=== PATIENT | female | born 1985 | race Caucasian/White ===

== ENCOUNTER 2017-01-02 14:12 | Emergency (ER) | payer BC, OTHER ==
[2017-01-02] MEDS ORDERED: METOCLOPRAMIDE INJ 10MG/2ML VIAL (J2765) As Ordered ONE (14:55)
[2017-01-02 14:59] LABS: MEAN CORPUSCULAR HGB CONC 34.5 g/dl (32.0-36.5); MEAN CORPUSCULAR VOLUME 92.6 fl (80.0-96.0); RED CELL DISTRIBUTION WIDTH 13.7 % (11.5-14.5); WHITE BLOOD COUNT 12.6 K/mm3 (4.0-10.0)
--- NOTE | 2017-01-02 16:27 | REP ---
Clinical: Vaginal bleeding. Technique: Transabdominal obstetrical ultrasound with color Doppler evaluation. Findings: Single live intrauterine in cephalic presentation. motion was identified by technologist. Placenta is noted anteriorly and grade 1 without evidence for placenta previa or abruption. Amniotic fluid volume is normal. Cervix measures 3.3 cm length and appears closed. Current biometrical measurements correspond to 14 weeks 5 days gestational age with estimated date of delivery 06/28/2017. heart rate equals 160 beats per minute. No gross abnormalities are identified. Maternal ovaries are normal in appearance and vascularity without torsion. Impression: Single live intrauterine at 14 weeks 5 days gestational age. Complete anatomical assessment should be performed at 19-20 weeks. Signed by Sky Samayoa MD 01/02/2017 04:19 P
[2017-01-02] MEDS ORDERED: METOCLOPRAMIDE 10 MG TAB As Ordered ONE (17:01)
[2017-01-02] MEDS ORDERED: ACETAMINOPHEN 325 MG TAB As Ordered ONE (17:02)
--- NOTE | 2017-01-02 17:11 | EDDOCDS ---
Nurse's Notes [facility] Name: Felicitas Kaye Age: 31 yrs Sex: Female : 1985 Arrival Date: 01/02/2017 Time: 14:12 Bed I1 / M1 Private MD: Other - Complete Info On Cds Diagnosis: related conditions, unspecified, first trimester-14 weeks 5 days;Abnormal uterine and vaginal bleeding, unspecified-Vaginal Spotting;Pelvic and perineal pain Presentation: 01/02 14:22 Presenting complaint: Patient states: 14 weeks . vag bleeding started about srm 9am. and cramping. had some cramping yesterday. when she was 5.5 weeks seen in [facility] for same symptoms. Risk factors: The patient reports no loss of conciousness prior to arrival. This patient has not had a hysterectomy. This patient has not begun menopause. Adult Sepsis Screening: The patient does not have new or worsening altered mentation. Patient's respiratory rate is less than 22. Systolic blood pressure is greater than 100. Patient has a qSOFA score of 0- Negative Sepsis Screen. Suicide/Homicide risk assessment- the patient denies having any suicidal and/or homicidal ideations and does not present with any other emotional, behavioral or mental health complaints. 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 Transition of care: patient was not received from another setting of care. 14:22 Acuity: CHARISSA Level 3 srm 14:22 Method Of Arrival: Walkin/Carried/Asstd srm Triage Assessment: 14:23 General: Appears in no apparent distress, Behavior is appropriate for age, cooperative. srm Pain: Pain currently is 7 out of 10 on a pain scale. 14:24 HIV screening NA for this visit Offered previously. : Reports vaginal bleeding that srm is moderate flow. 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 Vitamin Oral once daily - PMHx: none; - PSHx: right hand; - Social history: Smoking status: Patient states was never smoker of tobacco. No barriers to communication noted, The patient speaks fluent [place] Sudanese, Speaks appropriately for age. - Family history: Not pertinent. - : The pt / caregiver states he / she is not on anticoagulants. Home medication list is obtained from the patient. - Exposure Risk Screening:: None identified. Screenin:53 Screening information is obtained from the patient. Fall risk: No risks identified. pml Assistance ADL's: requires no assistance with activities of daily living. Abuse/DV Screen: The patient / caregiver reports he/she is: not in a situation that causes fear, pain or injury. Nutritional screening: No deficits noted. Advance Directives: Currently, there is no health care proxy. home support is adequate. Assessment: 14:53 General: Appears well nourished, well groomed, Behavior is anxious, cooperative, pml crying. Pain: Location: suprapubic area Pain currently is 7 out of 10 on a pain scale. Neurological: Level of Consciousness is awake, alert, Oriented to person, place, time. Cardiovascular: Capillary refill < 3 seconds. Respiratory: Airway is patent Respiratory effort is even, unlabored, Respiratory pattern is regular, symmetrical. GI: Abdomen is non- distended. : Reports vaginal bleeding that is bright red moderate flow since this AM. Derm: Skin is pink, warm & dry. 16:00 General: resting on stretcher, reports feeling better. IVF infusing as ordered. resps pml easy and unlabored, skin p/w/d. SO at bedside. 17:07 General: Appears in no apparent distress, Behavior is appropriate for age, cooperative. pml Pain: Location: suprapubic area Pain currently is 5 out of 10 on a pain scale. Neurological: Level of Consciousness is awake, alert, Oriented to person, place, time. Cardiovascular: Capillary refill < 3 seconds. Respiratory: Airway is patent Respiratory effort is even, unlabored, Respiratory pattern is regular, symmetrical. Derm: Skin is pink, warm & dry. Vital Signs: 14:15 BP 146 / 80; Pulse 81; Resp 18 S; Temp 97.7(O); Pulse Ox 100% on R/A; Weight 58.97 kg gr2 (R); Height 5 ft. 8 in. (172.72 cm) (R); Pain 8/10; 17:07 BP 121 / 66; Pulse 92; Resp 18; Temp 97.6; Pulse Ox 99% on R/A; Pain 5/10; pml 14:15 Body Mass Index 19.77 (58.97 kg, 172.72 cm) gr2 Vitals: 14:15 Log In Time: January 02, 2017 at 14:15. gr2 14:41 Heart Tones 148BPM. pml ED Course: 14:14 Patient visited by Gabe Puente. gr2 14:14 Other - Complete Info On Cds is Private Physician. gr2 14:14 Patient moved to Waiting gr2 14:16 Patient visited by Gabe Puente. gr2 14:16 Patient moved to Pre RCE gr2 14:23 Triage Initiated srm 14:29 Patient moved to I1 / M1 dls 14:32 Tashia Choudhary PA-C is PHCP. ef1 14:32 Shirley Sweeney MD is Attending Physician. ef1 14:32 Patient visited by Tashia Choudhary PA-C. ef1 14:53 The patient / caregiver is instructed regarding the plan of care and ED course. Patient pml has correct armband on for positive identification. Placed in gown. Bed in low position. Call light in reach. Side rails up X2. 14:53 Inserted peripheral IV: 20gauge IV in left antecubital area and blood collected. pml Patient tolerated the procedure well. 14:54 Patient visited by Julita Chávez RN. pml 15:15 Patient moved to Ultrasound br3 15:23 Patient name changed from Felicitas\S\Simone\S\Seelbinder\S\ to Felicitas\S\Simone\S\Vargas. EDMS 15:32 Patient moved to I1 / M1 br3 15:33 [place] [place] was scanned into [employer] and attached to record. lg 15:46 Patient visited by Tashia Choudhary PA-C. ef1 16:20 Patient visited by Tashia Choudhary PA-C. ef1 16:28 US OBS CYNTHIA GALVAN Returned. EDMS 16:44 Maria Esther Galindo, OB is Referral Physician. ef1 17:07 No procedures done that require assistance. pml Administered Medications: 15:02 Drug: Metoclopramide 10 mg [metoclopramide 5 mg/mL injection solution] Route: IV; Rate: pml 40 mg/hr; Infused Over: 15 mins; Site: left antecubital; 15:02 Drug: NS 0.9% 1000 ml [sodium chloride 0.9 % injection solution] Route: IV; Rate: pml bolus; Site: left antecubital; 17:09 Follow up: IV Intake: 1000ml pml 17: Drug: Acetaminophen 650 mg [acetaminophen 325 mg tablet (2 tabs)] Route: PO; pml 17: Drug: Metoclopramide 10 mg [metoclopramide 10 mg tablet (1 tabs)] Route: PO; pml 17: Follow up: Response: Med's dispensed home pml Intake: 17: IV: 1000.00ml; Total: 1000.00ml. pml Order Results: Lab Order: Complete Blood Count; SPEC'M 01/02/17 14:50 Test: WHITE BLOOD COUNT; Value: 12.6; Range: 4.0-10.0; Abnormal: Above high normal; Units: K/mm3; Status: F Test: RED BLOOD COUNT; Value: 4.06; Range: 4.00-5.40; Units: M/mm3; Status: F Test: HEMOGLOBIN; Value: 13.0; Range: 12.0-16.0; Units: g/dl; Status: F Test: HEMATOCRIT; Value: 37.6; Range: 36.0-47.0; Units: %; Status: F Test: MEAN CORPUSCULAR VOLUME; Value: 92.6; Range: 80.0-96.0; Units: fl; Status: F Test: MEAN CORPUSCULAR HEMOGLOBIN; Value: 32.0; Range: 27.0-33.0; Units: pg; Status: F Test: MEAN CORPUSCULAR HGB CONC; Value: 34.5; Range: 32.0-36.5; Units: g/dl; Status: F Test: RED CELL DISTRIBUTION WIDTH; Value: 13.7; Range: 11.5-14.5; Units: %; Status: F Test: PLATELET COUNT, AUTOMATED; Value: 279; Range: 150-450; Units: k/mm3; Status: F Lab Order: Hcg, Serum Quantitative; SPECM 01/02/17 14:50 Test: HCG, SERUM QUANTITATIVE; Value: 20842; Units: MIU/ML; Status: F Test Note: ; GESTATIONAL AGE APPROXIMATE HCG RANGE (MIU/ML) 0.2-1 WEEK 5-50 1-2 WEEKS 50-500 2-3 WEEKS 100-5,000 3-4 WEEKS 500-10,000 4-5 WEEKS 1,000-50,000 5-6 WEEKS 10,000-100,000 6-8 WEEKS 15,000-200,000 2-3 MONTHS 10,000-100,000 NON FEMALES LESS THAN 3.0 Patient samples may contain human heterophilic antibodies that could react with immunoassays to give falsely elevated or depressed results. This assay has been designed to minimize interference from heterophilic antibodies. Elevated hCG levels have also been associated with trophoblastic disease and nontrophoblastic neoplasms. The possibility of having these diseases should be considered before a diagnosis of is made. This test is not intended for use as a surrogate marker for aiding in the diagnosis or monitoring the treatment of cancer patients. Siemens wireLawyer methodology. Lab Order: Urinalysis; SPEC'M 01/02/17 14:50 Test: APPEARANCE, URINE; Value: CLEAR; Range: CLEAR; Status: F Test: COLOR, URINE; Value: COLORLESS; Range: YELLOW; Status: F Test: PH,URINE; Value: 6.0; Range: 5.0-9.0; Units: UNITS; Status: F Test: SPECIFIC GRAVITY URINE AUTO; Value: 1.001; Range: 1.002-1.035; Abnormal: Below low normal; Status: F Test: PROTEIN, URINE AUTO; Value: NEGATIVE; Range: NEGATIVE; Units: mg/dL; Status: F Test: GLUCOSE, URINE (UA) AUTO; Value: NEGATIVE; Range: NEGATIVE; Units: mg/dL; Status: F Test: KETONE, URINE AUTO; Value: NEGATIVE; Range: NEGATIVE; Units: mg/dL; Status: F Test: UROBILINOGEN, URINE AUTO; Value: 0.2; Range: 0.0-2.0; Units: mg/dL; Status: F Test: BILIRUBIN, URINE AUTO; Value: NEGATIVE; Range: NEGATIVE; Status: F Test: NITRITE, URINE AUTO; Value: NEGATIVE; Range: NEGATIVE; Status: F Test: LEUKOCYTE ESTERASE, URINE AUTO; Value: NEGATIVE; Range: NEGATIVE; Status: F Test: BLOOD, URINE BLOOD; Value: 1+; Range: NEGATIVE; Abnormal: Above high normal; Status: F Test: WBC, URINE AUTO; Value: 2; Range: 0-3; Units: /HPF; Status: F Test: RBC, URINE AUTO; Value: 1; Range: 0-3; Units: /HPF; Status: F Test: BACTERIA, URINE AUTO; Value: NEGATIVE; Range: NEGATIVE; Status: F Test: SQUAMOUS EPITHELIAL CELL UR AU; Value: 0; Range: 0-6; Units: /HPF; Status: F Test: HYALINE CAST, URINE AUTO; Value: 0; Range: 0-1; Units: /LPF; Status: F Test: AMORPHOUS SEDIMENT; Value: SMALL; Range: NEGATIVE; Abnormal: Above high normal; Status: F Lab Order: Type & Screen; SPEC'M 01/02/17 14:50 Test: BLOOD TYPE; Value: O POS; Status: F Test: AB SCREEN (INDIRECT SANTIAGO)VIS; Value: NEGATIVE; Status: F Radiology Order: US OBS SINGEL GEST Test: US OBS SINGEL GEST REASON FOR EXAMINATION: Bleeding; Clinical: Vaginal bleeding.; ; Technique: Transabdominal obstetrical ultrasound with color Doppler evaluation.; ; Findings:; Single live intrauterine in cephalic presentation. motion was; identified by technologist. Placenta is noted anteriorly and grade 1 without; evidence for placenta previa or abruption. Amniotic fluid volume is normal.; Cervix measures 3.3 cm length and appears closed.; ; Current biometrical measurements correspond to 14 weeks 5 days gestational age; with estimated date of delivery 06/28/2017. heart rate equals 160 beats; per minute. No gross abnormalities are identified. Maternal ovaries are normal; in appearance and vascularity without torsion.; ; Impression:; Single live intrauterine at 14 weeks 5 days gestational age. Complete; anatomical assessment should be performed at 19-20 weeks.; ; ; Signed by; Sky Samayoa MD 01/02/2017 04:19 P; Outcome: 16:44 Discharge ordered by Provider. ef1 17:07 Discharge Assessment: Patient awake, alert and oriented x 3. No cognitive and/or pml functional deficits noted. Patient verbalized understanding of disposition instructions. patient administered narcotics - no. The following High Risk Discharge criteria are identified: None. Discharged to home ambulatory. Condition: good Condition: stable. Discharge instructions given to patient, Instructed on discharge instructions, follow up and referral plans. medication usage, Demonstrated understanding of instructions, medications, Pt was receptive of discharge instructions/ teaching. Prescriptions given X 2. Ultrasound Study completed. Property sent home with patient. 17:10 Patient left the ED. pml Signatures: Dispatcher [employer] EDDeb Rodriguez, RN RN Karlee Carmona RN RN Beatriz Lance, Reg Reg Tashia Choudhary, PALucyC PALucyC ef1 Krissy Puente br3 Julita Chávez RN RN pml Raymond, Gainslee gr2 MTDD
--- NOTE | 2017-01-02 17:11 | EDDOCDS ---
Physician Documentation [facility] Name: Felicitas Kaye Age: 31 yrs Sex: Female : 1985 Arrival Date: 01/02/2017 Time: 14:12 Bed I1 / M1 Private MD: Other - Complete Info On Cds Disposition: 01/02/17 16:44 Discharged to Home/Self Care. Impression: related conditions, unspecified, first trimester - 14 weeks 5 days, Abnormal uterine and vaginal bleeding, unspecified - Vaginal Spotting, Pelvic and perineal pain. - Condition is Stable. - Discharge Instructions: Abdominal Pain During , Medicines During , First Trimester of , Oopd-sg-Ralr. - Prescriptions for Reglan 10 mg Oral Tablet - take 1 tablet by ORAL route every 6 hours take 30 minutes before meals and at bedtime; 20 tablet. Tylenol 325 mg Oral Tablet - take 2 tablets by ORAL route every 6 hours as needed; 30 tablet. - Medication Reconciliation, Local Pharmacy Hours, Work Release Form - 3 day form. - Follow up: [facility] [place]; When: Tomorrow; Reason: Further diagnostic work-up, Recheck today's complaints, Continuance of care. Follow up: Emergency Department; Reason: Worsening of conditions. - Problem is new. - Symptoms have improved. Historical: - Allergies: PENICILLINS (Unknown); - Home Meds: 1. Vitamin Oral once daily - PMHx: none; - PSHx: right hand; - Social history: Smoking status: Patient states was never smoker of tobacco. No barriers to communication noted, The patient speaks fluent Samoan, Speaks appropriately for age. - Family history: Not pertinent. - : The pt / caregiver states he / she is not on anticoagulants. Home medication list is obtained from the patient. - Exposure Risk Screening:: None identified. 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 8 in. (172.72 cm) (R); Pain 8/10; 17:07 BP 121 / 66; Pulse 92; Resp 18; Temp 97.6; Pulse Ox 99% on R/A; Pain 5/10; pml 14:15 Body Mass Index 19.77 (58.97 kg, 172.72 cm) gr2 MDM: 14:26 Heart Tones ordered. srm 14:26 Undress patient appropriately for examination ordered. srm 14:28 Complete Blood Count Ordered. EDMS 14:28 Hcg, Serum Quantitative Ordered. EDMS 14:28 Urinalysis Ordered. EDMS 14:32 IV Saline Lock ordered. ef1 14:32 Metoclopramide 10 mg IV at 40 mg/hr once over 15 mins ordered. ef1 14:33 NS 0.9% 1000 ml IV at bolus once ordered. ef1 14:35 Type & Screen Ordered. EDMS 14:41 Urine Culture Ordered. EDMS 15:10 Financial registration complete. lg 15:33 [facility] Payment Agreement was scanned into [employer] and attached to record. lg 15:37 US OBS SINGEL GEST Ordered. EDMS 15:37 DUPLEX SCAN LIMITED (DOPPLER) Ordered. EDMS 15:46 Complete Blood Count Reviewed. ef1 15:46 Urinalysis Reviewed. ef1 15:46 Hcg, Serum Quantitative Reviewed. ef1 15:56 Type & Screen Reviewed. ef1 16:43 Acetaminophen Tablet 650 mg PO once ordered. ef1 16:43 Metoclopramide 10 mg PO once; For take home use please ordered. ef1 Administered Medications: 15:02 Drug: Metoclopramide 10 mg [metoclopramide 5 mg/mL injection solution] Route: IV; Rate: pml 40 mg/hr; Infused Over: 15 mins; Site: left antecubital; 15:02 Drug: NS 0.9% 1000 ml [sodium chloride 0.9 % injection solution] Route: IV; Rate: pml bolus; Site: left antecubital; 17:09 Follow up: IV Intake: 1000ml pml 17:07 Drug: Acetaminophen 650 mg [acetaminophen 325 mg tablet (2 tabs)] Route: PO; pml 17:07 Drug: Metoclopramide 10 mg [metoclopramide 10 mg tablet (1 tabs)] Route: PO; pml 17:07 Follow up: Response: Med's dispensed home pml Signatures: Dispatcher [employer] EDMS Deb Michelle RN RN Beatriz Yarbrough Reg Reg lg Tashia Choudhary, PA-C PA-C ef1 Julita Chávez RN RN pml The chart was reviewed and I authenticate all verbal orders and agree with the evaluation and treatment provided.Corrections: (The following items were deleted from the chart) 14:36 14:28 RH ONLY+BBK ordered. EDMS EDMS 15:36 14:34 1ST TRIMESTER US+US ordered. EDMS EDMS Attachments: 15:33 [facility] [place] Payment Agreement lg MTDD
--- NOTE | 2017-01-04 18:10 | EDDOCDS ---
Physician Documentation [facility] Name: Felicitas Kaye Age: 31 yrs Sex: Female : 1985 Arrival Date: 01/02/2017 Time: 14:12 Bed I1 / M1 Private MD: Other - Complete Info On Cds Disposition: 01/02/17 16:44 Discharged to Home/Self Care. Impression: related conditions, unspecified, first trimester - 14 weeks 5 days, Abnormal uterine and vaginal bleeding, unspecified - Vaginal Spotting, Pelvic and perineal pain. - Condition is Stable. - Discharge Instructions: Abdominal Pain During , Medicines During , First Trimester of , Hjey-gw-Umtc. - Prescriptions for Reglan 10 mg Oral Tablet - take 1 tablet by ORAL route every 6 hours take 30 minutes before meals and at bedtime; 20 tablet. Tylenol 325 mg Oral Tablet - take 2 tablets by ORAL route every 6 hours as needed; 30 tablet. - Medication Reconciliation, Local Pharmacy Hours, Work Release Form - 3 day form. - Follow up: [facility] [place]; When: Tomorrow; Reason: Further diagnostic work-up, Recheck today's complaints, Continuance of care. Follow up: Emergency Department; Reason: Worsening of conditions. - Problem is new. - Symptoms have improved. Historical: - Allergies: PENICILLINS (Unknown); - Home Meds: 1. Vitamin Oral once daily - PMHx: none; - PSHx: right hand; - Social history: Smoking status: Patient states was never smoker of tobacco. No barriers to communication noted, The patient speaks fluent [place]an, Speaks appropriately for age. - Family history: Not pertinent. - : The pt / caregiver states he / she is not on anticoagulants. Home medication list is obtained from the patient. - Exposure Risk Screening:: None identified. 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 8 in. (172.72 cm) (R); Pain 8/10; 17:07 BP 121 / 66; Pulse 92; Resp 18; Temp 97.6; Pulse Ox 99% on R/A; Pain 5/10; pml 14:15 Body Mass Index 19.77 (58.97 kg, 172.72 cm) gr2 MDM: 14:26 Heart Tones ordered. srm 14:26 Undress patient appropriately for examination ordered. srm 14:28 Complete Blood Count Ordered. EDMS 14:28 Hcg, Serum Quantitative Ordered. EDMS 14:28 Urinalysis Ordered. EDMS 14:32 IV Saline Lock ordered. ef1 14:32 Metoclopramide 10 mg IV at 40 mg/hr once over 15 mins ordered. ef1 14:33 NS 0.9% 1000 ml IV at bolus once ordered. ef1 14:35 Type & Screen Ordered. EDMS 14:41 Urine Culture Ordered. EDMS 15:10 Financial registration complete. lg 15:33 [facility] Payment Agreement was scanned into [employer] and attached to record. lg 15:37 US OBS SINGEL GEST Ordered. EDMS 15:37 DUPLEX SCAN LIMITED (DOPPLER) Ordered. EDMS 15:46 Complete Blood Count Reviewed. ef1 15:46 Urinalysis Reviewed. ef1 15:46 Hcg, Serum Quantitative Reviewed. ef1 15:56 Type & Screen Reviewed. ef1 16:43 Acetaminophen Tablet 650 mg PO once ordered. ef1 16:43 Metoclopramide 10 mg PO once; For take home use please ordered. ef1 21:29 T-Sheet-- Draft Copy was scanned into [employer] and attached to record. klr 01/03 12:05 Radiology Report was scanned into [employer] and attached to record. gb Administered Medications: 01/02 15:02 Drug: Metoclopramide 10 mg [metoclopramide 5 mg/mL injection solution] Route: IV; Rate: pml 40 mg/hr; Infused Over: 15 mins; Site: left antecubital; 15:02 Drug: NS 0.9% 1000 ml [sodium chloride 0.9 % injection solution] Route: IV; Rate: pml bolus; Site: left antecubital; 17:09 Follow up: IV Intake: 1000ml pml 17:07 Drug: Acetaminophen 650 mg [acetaminophen 325 mg tablet (2 tabs)] Route: PO; pml 17:07 Drug: Metoclopramide 10 mg [metoclopramide 10 mg tablet (1 tabs)] Route: PO; pml 17:07 Follow up: Response: Med's dispensed home pml Signatures: Dispatcher [employer] EDMS Deb Michelle RN RN [facility] Rachele Merced, Reg Reg gb Beatriz Soto, Reg Reg lg Tashia Choudhary, JON PAJose ef1 Julita Chávez RN RN pml Redder, Kathie klr The chart was reviewed and I authenticate all verbal orders and agree with the evaluation and treatment provided.Corrections: (The following items were deleted from the chart) 14:36 14:28 RH ONLY+BBK ordered. EDMS EDMS 15:36 14:34 1ST TRIMESTER US+US ordered. EDMS EDMS Attachments: 15:33 [facility] [place] lg 21:29 T-Sheet-- Draft Copy klr Chart Complete MTDD
--- NOTE | 2017-01-04 18:10 | EDDOCDS ---
Physician Documentation [facility] Name: Felicitas Kaye Age: 31 yrs Sex: Female : 1985 Arrival Date: 01/02/2017 Time: 14:12 Bed I1 / M1 Private MD: Other - Complete Info On Cds Disposition: 01/02/17 16:44 Discharged to Home/Self Care. Impression: related conditions, unspecified, first trimester - 14 weeks 5 days, Abnormal uterine and vaginal bleeding, unspecified - Vaginal Spotting, Pelvic and perineal pain. - Condition is Stable. - Discharge Instructions: Abdominal Pain During , Medicines During , First Trimester of , [id number]. - Prescriptions for Reglan 10 mg Oral Tablet - take 1 tablet by ORAL route every 6 hours take 30 minutes before meals and at bedtime; 20 tablet. Tylenol 325 mg Oral Tablet - take 2 tablets by ORAL route every 6 hours as needed; 30 tablet. - Medication Reconciliation, Local Pharmacy Hours, Work Release Form - 3 day form. - Follow up: [facility] [place]; When: Tomorrow; Reason: Further diagnostic work-up, Recheck today's complaints, Continuance of care. Follow up: Emergency Department; Reason: Worsening of conditions. - Problem is new. - Symptoms have improved. Historical: - Allergies: PENICILLINS (Unknown); - Home Meds: 1. Vitamin Oral once daily - PMHx: none; - PSHx: right hand; - Social history: Smoking status: Patient states was never smoker of tobacco. No barriers to communication noted, The patient speaks fluent Mauritanian, Speaks appropriately for age. - Family history: Not pertinent. - : The pt / caregiver states he / she is not on anticoagulants. Home medication list is obtained from the patient. - Exposure Risk Screening:: None identified. 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 8 in. (172.72 cm) (R); Pain 8/10; 17:07 BP 121 / 66; Pulse 92; Resp 18; Temp 97.6; Pulse Ox 99% on R/A; Pain 5/10; pml 14:15 Body Mass Index 19.77 (58.97 kg, 172.72 cm) gr2 MDM: 14:26 Heart Tones ordered. srm 14:26 Undress patient appropriately for examination ordered. srm 14:28 Complete Blood Count Ordered. EDMS 14:28 Hcg, Serum Quantitative Ordered. EDMS 14:28 Urinalysis Ordered. EDMS 14:32 IV Saline Lock ordered. ef1 14:32 Metoclopramide 10 mg IV at 40 mg/hr once over 15 mins ordered. ef1 14:33 NS 0.9% 1000 ml IV at bolus once ordered. ef1 14:35 Type & Screen Ordered. EDMS 14:41 Urine Culture Ordered. EDMS 15:10 Financial registration complete. lg 15:33 [facility] Payment Agreement was scanned into [employer] and attached to record. lg 15:37 US OBS SINGEL GEST Ordered. EDMS 15:37 DUPLEX SCAN LIMITED (DOPPLER) Ordered. EDMS 15:46 Complete Blood Count Reviewed. ef1 15:46 Urinalysis Reviewed. ef1 15:46 Hcg, Serum Quantitative Reviewed. ef1 15:56 Type & Screen Reviewed. ef1 16:43 Acetaminophen Tablet 650 mg PO once ordered. ef1 16:43 Metoclopramide 10 mg PO once; For take home use please ordered. ef1 21:29 T-Sheet-- Draft Copy was scanned into [employer] and attached to record. klr 01/03 12:05 Radiology Report was scanned into [employer] and attached to record. gb Administered Medications: 01/02 15:02 Drug: Metoclopramide 10 mg [metoclopramide 5 mg/mL injection solution] Route: IV; Rate: pml 40 mg/hr; Infused Over: 15 mins; Site: left antecubital; 15:02 Drug: NS 0.9% 1000 ml [sodium chloride 0.9 % injection solution] Route: IV; Rate: pml bolus; Site: left antecubital; 17:09 Follow up: IV Intake: 1000ml pml 17:07 Drug: Acetaminophen 650 mg [acetaminophen 325 mg tablet (2 tabs)] Route: PO; pml 17:07 Drug: Metoclopramide 10 mg [metoclopramide 10 mg tablet (1 tabs)] Route: PO; pml 17:07 Follow up: Response: Med's dispensed home pml Signatures: Dispatcher [employer] EDMS Deb Michelle RN RN [facility] Rachele [place], Reg Reg gb Beatriz Soto, Reg Reg lg Tashia Choudhary, JON PAJose ef1 Julita Chávez RN RN pml Redder, Kathie klr The chart was reviewed and I authenticate all verbal orders and agree with the evaluation and treatment provided.Corrections: (The following items were deleted from the chart) 14:36 14:28 RH ONLY+BBK ordered. EDMS EDMS 15:36 14:34 1ST TRIMESTER US+US ordered. EDMS EDMS Attachments: 15:33 [facility] Payment Agreement lg 21:29 T-Sheet-- Draft Copy klr Chart Complete MTDD
--- NOTE | 2017-01-04 18:11 | EDDOCDS ---
Nurse's Notes [facility] Name: Felicitas Kaye Age: 31 yrs Sex: Female : 1985 Arrival Date: 01/02/2017 Time: 14:12 Bed I1 / M1 Private MD: Other - Complete Info On Cds Diagnosis: related conditions, unspecified, first trimester-14 weeks 5 days;Abnormal uterine and vaginal bleeding, unspecified-Vaginal Spotting;Pelvic and perineal pain Presentation: 01/02 14:22 Presenting complaint: Patient states: 14 weeks . vag bleeding started about srm 9am. and cramping. had some cramping yesterday. when she was 5.5 weeks seen in [facility] for same symptoms. Risk factors: The patient reports no loss of conciousness prior to arrival. This patient has not had a hysterectomy. This patient has not begun menopause. Adult Sepsis Screening: The patient does not have new or worsening altered mentation. Patient's respiratory rate is less than 22. Systolic blood pressure is greater than 100. Patient has a qSOFA score of 0- Negative Sepsis Screen. Suicide/Homicide risk assessment- the patient denies having any suicidal and/or homicidal ideations and does not present with any other emotional, behavioral or mental health complaints. Status: Patient is not a lab support service tech or dependent. Transition of care: patient was not received from another setting of care. 14:22 Acuity: CHARISSA Level 3 srm 14:22 Method Of Arrival: Walkin/Carried/Asstd srm Triage Assessment: 14:23 General: Appears in no apparent distress, Behavior is appropriate for age, cooperative. srm Pain: Pain currently is 7 out of 10 on a pain scale. 14:24 HIV screening NA for this visit Offered previously. : Reports vaginal bleeding that srm is moderate flow. 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 Vitamin Oral once daily - PMHx: none; - PSHx: right hand; - Social history: Smoking status: Patient states was never smoker of tobacco. No barriers to communication noted, The patient speaks fluent Argentine, Speaks appropriately for age. - Family history: Not pertinent. - : The pt / caregiver states he / she is not on anticoagulants. Home medication list is obtained from the patient. - Exposure Risk Screening:: None identified. Screenin:53 Screening information is obtained from the patient. Fall risk: No risks identified. pml Assistance ADL's: requires no assistance with activities of daily living. Abuse/DV Screen: The patient / caregiver reports he/she is: not in a situation that causes fear, pain or injury. Nutritional screening: No deficits noted. Advance Directives: Currently, there is no health care proxy. home support is adequate. Assessment: 14:53 General: Appears well nourished, well groomed, Behavior is anxious, cooperative, pml crying. Pain: Location: suprapubic area Pain currently is 7 out of 10 on a pain scale. Neurological: Level of Consciousness is awake, alert, Oriented to person, place, time. Cardiovascular: Capillary refill < 3 seconds. Respiratory: Airway is patent Respiratory effort is even, unlabored, Respiratory pattern is regular, symmetrical. GI: Abdomen is non- distended. : Reports vaginal bleeding that is bright red moderate flow since this AM. Derm: Skin is pink, warm & dry. 16:00 General: resting on stretcher, reports feeling better. IVF infusing as ordered. resps pml easy and unlabored, skin p/w/d. SO at bedside. 17:07 General: Appears in no apparent distress, Behavior is appropriate for age, cooperative. pml Pain: Location: suprapubic area Pain currently is 5 out of 10 on a pain scale. Neurological: Level of Consciousness is awake, alert, Oriented to person, place, time. Cardiovascular: Capillary refill < 3 seconds. Respiratory: Airway is patent Respiratory effort is even, unlabored, Respiratory pattern is regular, symmetrical. Derm: Skin is pink, warm & dry. Vital Signs: 14:15 BP 146 / 80; Pulse 81; Resp 18 S; Temp 97.7(O); Pulse Ox 100% on R/A; Weight 58.97 kg gr2 (R); Height 5 ft. 8 in. (172.72 cm) (R); Pain 8/10; 17:07 BP 121 / 66; Pulse 92; Resp 18; Temp 97.6; Pulse Ox 99% on R/A; Pain 5/10; pml 14:15 Body Mass Index 19.77 (58.97 kg, 172.72 cm) gr2 Vitals: 14:15 Log In Time: January 02, 2017 at 14:15. gr2 14:41 Heart Tones 148BPM. pml ED Course: 14:14 Patient visited by Gabe Puente. gr2 14:14 Other - Complete Info On Cds is Private Physician. gr2 14:14 Patient moved to Waiting gr2 14:16 Patient visited by Gabe Puente. gr2 14:16 Patient moved to Pre RCE gr2 14:23 Triage Initiated srm 14:29 Patient moved to I1 / M1 dls 14:32 Tashia Choudhary PA-C is [facility]. ef1 14:32 Shirley Sweeney MD is Attending Physician. ef1 14:32 Patient visited by Tashia Choudhary PA-C. ef1 14:53 The patient / caregiver is instructed regarding the plan of care and ED course. Patient pml has correct armband on for positive identification. Placed in gown. Bed in low position. Call light in reach. Side rails up X2. 14:53 Inserted peripheral IV: 20gauge IV in left antecubital area and blood collected. pml Patient tolerated the procedure well. 14:54 Patient visited by Julita Chávez RN. pml 15:15 Patient moved to Ultrasound br3 15:23 Patient name changed from Felicitas\S\Simone\S\Seelbinder\S\ to Felicitas\S\Simone\S\Vargas. EDMS 15:32 Patient moved to I1 / M1 br3 15:33 [facility] Payment Agreement was scanned into [employer] and attached to record. lg 15:46 Patient visited by Tashia Choudhary PA-C. ef1 16:20 Patient visited by Tashia Choudhary PA-C. ef1 16:28 US OBS ALESSIOEL GEST Returned. EDMS 16:44 Maria Esther Galindo, OB is Referral Physician. ef1 17:07 No procedures done that require assistance. pml 21:29 T-Sheet-- Draft Copy was scanned into [employer] and attached to record. klr 01/03 12:05 Radiology Report was scanned into [employer] and attached to record. gb Administered Medications: 01/02 15:02 Drug: Metoclopramide 10 mg [metoclopramide 5 mg/mL injection solution] Route: IV; Rate: pml 40 mg/hr; Infused Over: 15 mins; Site: left antecubital; 15:02 Drug: NS 0.9% 1000 ml [sodium chloride 0.9 % injection solution] Route: IV; Rate: pml bolus; Site: left antecubital; 17:09 Follow up: IV Intake: 1000ml pml 17: Drug: Acetaminophen 650 mg [acetaminophen 325 mg tablet (2 tabs)] Route: PO; pml 17: Drug: Metoclopramide 10 mg [metoclopramide 10 mg tablet (1 tabs)] Route: PO; pml 17:07 Follow up: Response: Med's dispensed home pml Intake: 17:09 IV: 1000.00ml; Total: 1000.00ml. pml Order Results: Lab Order: Complete Blood Count; SPEC'M 01/02/17 14:50 Test: WHITE BLOOD COUNT; Value: 12.6; Range: 4.0-10.0; Abnormal: Above high normal; Units: K/mm3; Status: F Test: RED BLOOD COUNT; Value: 4.06; Range: 4.00-5.40; Units: M/mm3; Status: F Test: HEMOGLOBIN; Value: 13.0; Range: 12.0-16.0; Units: g/dl; Status: F Test: HEMATOCRIT; Value: 37.6; Range: 36.0-47.0; Units: %; Status: F Test: MEAN CORPUSCULAR VOLUME; Value: 92.6; Range: 80.0-96.0; Units: fl; Status: F Test: MEAN CORPUSCULAR HEMOGLOBIN; Value: 32.0; Range: 27.0-33.0; Units: pg; Status: F Test: MEAN CORPUSCULAR HGB CONC; Value: 34.5; Range: 32.0-36.5; Units: g/dl; Status: F Test: RED CELL DISTRIBUTION WIDTH; Value: 13.7; Range: 11.5-14.5; Units: %; Status: F Test: PLATELET COUNT, AUTOMATED; Value: 279; Range: 150-450; Units: k/mm3; Status: F Lab Order: Hcg, Serum Quantitative; SPEC'M 01/02/17 14:50 Test: HCG, SERUM QUANTITATIVE; Value: 69089; Units: MIU/ML; Status: F Test Note: ; GESTATIONAL AGE APPROXIMATE HCG RANGE (MIU/ML) 0.2-1 WEEK 5-50 1-2 WEEKS 50-500 2-3 WEEKS 100-5,000 3-4 WEEKS 500-10,000 4-5 WEEKS 1,000-50,000 5-6 WEEKS 10,000-100,000 6-8 WEEKS 15,000-200,000 2-3 MONTHS 10,000-100,000 NON FEMALES LESS THAN 3.0 Patient samples may contain human heterophilic antibodies that could react with immunoassays to give falsely elevated or depressed results. This assay has been designed to minimize interference from heterophilic antibodies. Elevated hCG levels have also been associated with trophoblastic disease and nontrophoblastic neoplasms. The possibility of having these diseases should be considered before a diagnosis of is made. This test is not intended for use as a surrogate marker for aiding in the diagnosis or monitoring the treatment of cancer patients. [email or web address] methodology. Lab Order: Urinalysis; SPEC'M 01/02/17 14:50 Test: APPEARANCE, URINE; Value: CLEAR; Range: CLEAR; Status: F Test: COLOR, URINE; Value: COLORLESS; Range: YELLOW; Status: F Test: PH,URINE; Value: 6.0; Range: 5.0-9.0; Units: UNITS; Status: F Test: SPECIFIC GRAVITY URINE AUTO; Value: 1.001; Range: 1.002-1.035; Abnormal: Below low normal; Status: F Test: PROTEIN, URINE AUTO; Value: NEGATIVE; Range: NEGATIVE; Units: mg/dL; Status: F Test: GLUCOSE, URINE (UA) AUTO; Value: NEGATIVE; Range: NEGATIVE; Units: mg/dL; Status: F Test: KETONE, URINE AUTO; Value: NEGATIVE; Range: NEGATIVE; Units: mg/dL; Status: F Test: UROBILINOGEN, URINE AUTO; Value: 0.2; Range: 0.0-2.0; Units: mg/dL; Status: F Test: BILIRUBIN, URINE AUTO; Value: NEGATIVE; Range: NEGATIVE; Status: F Test: NITRITE, URINE AUTO; Value: NEGATIVE; Range: NEGATIVE; Status: F Test: LEUKOCYTE ESTERASE, URINE AUTO; Value: NEGATIVE; Range: NEGATIVE; Status: F Test: BLOOD, URINE BLOOD; Value: 1+; Range: NEGATIVE; Abnormal: Above high normal; Status: F Test: WBC, URINE AUTO; Value: 2; Range: 0-3; Units: /HPF; Status: F Test: RBC, URINE AUTO; Value: 1; Range: 0-3; Units: /HPF; Status: F Test: BACTERIA, URINE AUTO; Value: NEGATIVE; Range: NEGATIVE; Status: F Test: SQUAMOUS EPITHELIAL CELL UR AU; Value: 0; Range: 0-6; Units: /HPF; Status: F Test: HYALINE CAST, URINE AUTO; Value: 0; Range: 0-1; Units: /LPF; Status: F Test: AMORPHOUS SEDIMENT; Value: SMALL; Range: NEGATIVE; Abnormal: Above high normal; Status: F Lab Order: Type & Screen; SPEC'M 01/02/17 14:50 Test: BLOOD TYPE; Value: O POS; Status: F Test: AB SCREEN (INDIRECT SANTIAGO)VIS; Value: NEGATIVE; Status: F Lab Order: Urine Culture; SPEC'M 01/02/17 14:50 Test: URINE CULTURE; Value: <EXTERNAL COMMENT eCWMed> FULL REPORT IN LAB NOTES (eCW and Medent).; Status: F Test: URINE CULTURE; Value: URINE CULTURE RESULT; Status: F Test: URINE CULTURE; Value: NO GROWTH CLINICAL SIGNIFICANCE 2 OR MORE ORGANISMS; Status: F Radiology Order: US OBS SINGEL GEST Test: US OBS SINGEL GEST REASON FOR EXAMINATION: Bleeding; Clinical: Vaginal bleeding.; ; Technique: Transabdominal obstetrical ultrasound with color Doppler evaluation.; ; Findings:; Single live intrauterine in cephalic presentation. motion was; identified by technologist. Placenta is noted anteriorly and grade 1 without; evidence for placenta previa or abruption. Amniotic fluid volume is normal.; Cervix measures 3.3 cm length and appears closed.; ; Current biometrical measurements correspond to 14 weeks 5 days gestational age; with estimated date of delivery 06/28/2017. heart rate equals 160 beats; per minute. No gross abnormalities are identified. Maternal ovaries are normal; in appearance and vascularity without torsion.; ; Impression:; Single live intrauterine at 14 weeks 5 days gestational age. Complete; anatomical assessment should be performed at 19-20 weeks.; ; ; Signed by; Sky Samayoa MD 01/02/2017 04:19 P; Outcome: 16:44 Discharge ordered by Provider. ef1 17:07 Discharge Assessment: Patient awake, alert and oriented x 3. No cognitive and/or pml functional deficits noted. Patient verbalized understanding of disposition instructions. patient administered narcotics - no. The following High Risk Discharge criteria are identified: None. Discharged to home ambulatory. Condition: good Condition: stable. Discharge instructions given to patient, Instructed on discharge instructions, follow up and referral plans. medication usage, Demonstrated understanding of instructions, medications, Pt was receptive of discharge instructions/ teaching. Prescriptions given X 2. Ultrasound Study completed. Property sent home with patient. 17:10 Patient left the ED. pml Signatures: Dispatcher [employer] EDMS Deb Michelle, TAMELA RN Karlee Carmona RN RN dls [place] Jeffrey, Reg Reg gb Beatriz Soto, Reg Reg lg Tashia Choudhary, PA-C PA-C ef1 Krissy Puente br3 Julita Chávez RN RN pml Raymond, Gainslee gr2 Tatmu Leon Chart Complete RACHEL
== END 2017-01-02 17:10 | disposition home or self-care (01) ==
LOC: M ED 14:12
DX: O26.852 Spotting complicating pregnancy, second trimester (principal); O26.892 Other specified pregnancy related conditions, second trimester; R10.2 Pelvic and perineal pain; Z88.0 Allergy status to penicillin; Z3A.14 14 weeks gestation of pregnancy
CPT/HCPCS: 36415; 76811; 81001; 84702; 85027; 86850; 86900; 86901; 87086; 93976; 96374; 99284; J2765

== ENCOUNTER 2017-02-01 20:05 | Emergency (ER) | payer OTHER ==
[~2017-02-01] VITALS: Ht 152.4 cm; Wt 63.5 kg
[2017-02-01 20:17] VITALS: BP 112/73
[2017-02-01 20:48] LABS: BASO % 0.3 % (0.0-1.0); EOS # 0.2 K/mm3 (0.0-0.50); EOS % 1.7 % (0.0-3.0); LARGE UNSTAINED CELL # 0.2 K/mm3 (0.0-0.4); LARGE UNSTAINED CELL % 1.8 % (0.0-4.0); LYMPH # 2.9 K/mm3 (1.5-4.5); LYMPH % 26.5 % (24.0-44.0); MEAN CORPUSCULAR HEMOGLOBIN 32.2 pg (27.0-33.0); MEAN CORPUSCULAR HGB CONC 35.1 g/dl (32.0-36.5); MEAN CORPUSCULAR VOLUME 91.7 fl (80.0-96.0); MONO # 0.7 K/mm3 (0.0-0.8); MONO % 6.8 % (0.0-5.0); NEUTROPHILS # 6.8 K/mm3 (1.8-7.7); NEUTROPHILS % 62.9 % (36.0-66.0); PLATELET COUNT, AUTOMATED 281 k/mm3 (150-450); RED CELL DISTRIBUTION WIDTH 13.2 % (11.5-14.5); WHITE BLOOD COUNT 10.8 K/mm3 (4.0-10.0)
[2017-02-01 21:29] LABS: CALCIUM OXALATE CRYSTALS SMALL
[2017-02-01] MEDS ORDERED: ACETAMINOPHEN TAB 650MG DOSE (2X325MG) PO ONE (21:30)
--- NOTE | 2017-02-01 23:10 | REPUSA ---
CLINICAL HISTORY: Cramping, . TECHNIQUE: Realtime sonographic images were obtained in multiple projections. COMMENTS: Pregnancies: 5, Para 2 LMP: 09/24/2016 GA by LMP: 18 weeks 4 days; YUE 07/01/2017 GA by First Study: 18 weeks 4 days; YUE 07/01/2017 GA by Today's US: 19 weeks 3 days; YUE 06/25/2017 GA Selected: 18 weeks 4 days (LMP) YUE: 07/01/2017 Today's ultrasound exam revealed a single living intrauterine fetus in a variable position. mo tion was identified. heart rate was documented at 143 bpm. The placenta is anterior, without evidence of previa or abruption. Subjectively, the amniotic fluid appears within normal limits. The cervix, imaged transvaginally and transabdominally, measured approximately 3.1 cm. The lateral vent ricle measures 6.9 mm. Evaluation of the maternal adnexal and cul-de-sac regions revealed no abnorma lities. Sonographically, the estimated gestational age is 19 weeks 3 days. There has been appropria te interval growth since prior exam. gender was documented as male. Nuchal cord was not seen. The exam was good but limited by position. Biometry and Growth Measurement GA BPD 4.6 cm 19 weeks 6 days HC 16.3 cm 19 weeks 1 day AC 13.9 cm 19 weeks 2 days FL 2.9 cm 19 weeks 0 day HL 3.0 cm 19 weeks 5 days % for 18 weeks 4 days Ratios BPD 82% FL/BPD 0.64 HC 65% FL/AC 0.21 AC 64% HC/AC 1.18 (1.07-1.26) FL 60% Ceph. Ind. 0.79 (0.70 - 0.86) HL 68% GA for sonogram 19 weeks 3 days (17 weeks 3 days - 21 weeks 2 days) based on (HL, BPD, HC, AC, FL) Av erage. Cervical Length: 3.1 cm Heart Rate: 143 bpm Weight Estimate Weight: 277 gm Normal: 253 gm Wt%: 68% for 18 weeks 4 days Anatomy Cranium: Normal Choroid Plexus: Normal Cavum: Normal. Cerebellum/posterior fossa: Normal. Face/Profile: Normal. Lungs: Normal. 4 Chamber heart: Suboptimal. LVOT: Suboptimal. RVOT: Suboptimal. Diaphragm: Normal. Stomach (left sided): Normal. Cord insertion: Normal. 3 vessel Cord. Normal. Kidneys: Normal. Bladder: Normal. Spine (sagittal and transverse planes): Suboptimal. Upper extremities: Normal. Lower extremities: Normal. IMPRESSION: Single, live, intrauterine gestation, 19 weeks 3 days based on today's crown/rump length. Thank you for your kind referral of this patient. We appreciate the opportunity to participate in thi s patient's care.
[2017-02-02] MEDS ORDERED: MORPHINE 2 MG/ML 1ML SYRINGE IM ONE (00:15)
== END 2017-02-02 00:43 | disposition home or self-care (01) ==
LOC: EDBD 20:05 → M ED 22:14
DX: O26.892 Other specified pregnancy related conditions, second trimester (principal); R10.2 Pelvic and perineal pain; Z3A.18 18 weeks gestation of pregnancy

== ENCOUNTER 2017-02-08 20:59 | Outpatient (CLI) | payer OTHER ==
[~2017-02-08] VITALS: Ht 172.7 cm; Wt 63.0 kg
[2017-02-08 21:21] VITALS: BP 117/71
--- NOTE | 2017-02-08 23:44 | HPE ---
DATE OF ADMISSION: 02/08/2017 This lady is a 31-year-old 5, para 2, abortus 2, last menstrual period (LMP) 09/24/2016, estimated date of confinement (EDC) 07/01/2017. She is at 19 weeks and 5 days with a history of abdominal pain, intermittent in nature. She has recently had two emergency department (ED) visits. She has had two workups which were negative. She has had two ultrasounds which were negative. When she had her most recent visit, she had her abdominal pain, and she received some morphine 2 mg and after that, she was discharged. She recently had a level II ultrasound 02/07/2017. There was appropriate growth, there was no anomalies and normal amniotic fluid, normal presentation, normal cervical length She also had a visit in the clinic on 01/10/2017 and did not mention anything about abdominal pain. She came tonight by ambulance with abdominal pain, similar to the episodes like before, and had no evidence to suggest anything different than when she had her three evaluations previously. Re-reviewed her history. She told us that she had endometriosis and that was diagnosed by laparoscopy. 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 She is quite tanned. In fact, her face shows first-degree arreguin. She denies tanning over the last 3-5 months. She is also tanned over her abdomen and the rest of her body and she denies tanning. 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 However, she has significant arreguin on her cheek and the lower half of her face related to what looks like tanning arreguin. She has had no vaginal bleeding or vaginal loss. She declined pelvic examination because she said her cervix is normal, and she says that morphine was forced upon her and she did not want it; however, she did take it at that time and she said she got some relief. We explained the issue of increasing abdominal tenderness because of the rapid growth of the uterus and that we, as well as other evaluators were not able to find any etiology behind her pain. When we suggested that she call her , she said he is in training and when she was in emergency the last visit, the first sergeant came and picked her up. She said the first sergeant could not come and pick her up at the present time because he was off in [place] picking up some soldiers and he would not be available until 1:00 a.m. At that point, we offered to get the sergeant relations officer that is attached to the hospital, and when I went out to call the sergeant, she relayed to the nurse that the first sergeant could be here in 10 minutes to pick her up. We gave her precautions. We told her that she can come back at any time, but she should go through the emergency because there is no evidence to suggest any jeopardy at this time. She was upset that we were letting her go and could not understand why she was having the pain. Again, we reiterated that she had been fully worked up and there was no uterine issue and no issue. Her past history is: In 01/2007 at 40 weeks, normal spontaneous delivery, 7 pounds 9 ounces, male. She was induced. Etiology unknown. 11/11/2009, she said she went into labor. They stopped it, but she delivered a spontaneous vaginal delivery at 37 weeks of gestation . She has had two spontaneous abortions. Her blood work shows she is O+, HIV negative, hepatitis negative, RPR negative, rubella immune. Varicella immune. Pelvic examination, as mentioned, was deferred and declined. She had had a recent ultrasound yesterday which showed everything appropriately was normal. Cystic fibrosis was negative. Her Pap smear showed she has LGLSIL. the urine was negative. Gonorrhea and chlamydia were negative. The rest of the examination was unremarkable. Blood pressure is 117/76, respirations are 18, pulse is 70 and temperature is 100.2. However, she was crying and quite upset. Urine is 1.025, pH was 5. The rest was negative. We indicated to her that she was still concentrated urine, meaning that she could increase her fluids. She said she cannot drink water and said she was drinking enough . We encouraged her to drink fluids as this would decrease the uterine irritability, and she said she cannot drink anymore. When the person arrived to pick her up and happened to be down in emergency, when he arrived, we indicated that she was in room four, that he is the first sergeant and he is here to pick her up and he initially said he was not the first sergeant but he was here to pick her up and then he changed his mind and said yes, he is the first sergeant. They both left. The patient was given precautions, signed a release form and was encouraged to come to emergency if there was any change in her status. The rest of the examination, as mentioned, was unremarkable. She is normocephalic, atraumatic. Full range of motions. Pupils equal and reactive to light. Distal pulses are symmetric. No evidence of deep vein thrombosis (DVT), pulmonary embolism (PE) or superficial phlebitis. Chest is clear bilaterally to bases. No wheezes or rhonchi. No costovertebral angle tenderness. Uterus is nontender. She has piercings in her umbilical area. She has no scars to suggest she had surgery. Symphysis fundus height is appropriate. heart is present. Uterus is nontender. There is no vaginal loss or bleeding. No rashes or lesions or pruritus. No arthralgia or myalgia. No complaints of cough, wheezes, shortness of breath or dyspnea on exertion. No chest pain. She is not bleeding. She is neurologic complete. No incontinence, urgency or frequency. No nausea, vomiting, diarrhea or constipation. Past medical history is unremarkable. Surgical history unremarkable. She does not smoke or drink or abuse drugs. She is . Her is in training at the present time in [place]. In summary, we have a 31-year-old 5, who has had recurring abdominal pains with multiple investigations and at 19 weeks 5 days and no etiology at the present time is found. The patient was discharged undelivered. We spent 1 hour with the patient.
== END 2017-02-08 22:10 | disposition home or self-care (01) ==
LOC: M LDO 20:59
PROVIDERS: ATTEND Obstetrics & Gynecology
DX: O26.892 Other specified pregnancy related conditions, second trimester (principal); R10.9 Unspecified abdominal pain; O62.0 Primary inadequate contractions; Z3A.19 19 weeks gestation of pregnancy; O09.212 Supervision of pregnancy with history of pre-term labor, second trimester; O09.292 Supervision of pregnancy with other poor reproductive or obstetric history, second trimester

== ENCOUNTER 2017-04-15 15:34 | Inpatient (IN) | payer OTHER ==
[~2017-04-15] VITALS: Ht 172.7 cm; Wt 66.0 kg
[2017-04-15 15:41] VITALS: BP 136/81
[2017-04-15] MEDS ORDERED: PRENTAB55 PO (15:57)
[2017-04-15] MEDS ORDERED: NIFEdipine 10 MG CAP PO ONE ×2 (17:30→22:30)
[2017-04-15 17:36] VITALS: BP 109/58
[2017-04-15 18:10] VITALS: BP 122/68
[2017-04-15 18:51] VITALS: BP 121/59
[2017-04-15] MEDS ORDERED: LACTATED RINGER'S 1000 ML IV STA (19:26)
[2017-04-15] MEDS ORDERED: ACETAMINOPHEN 500 MG TAB PO PRN (19:30)
[2017-04-15] MEDS ORDERED: BETAMETHASONE SOLUSPAN 6MG/ML INJ 5ML (J0702) IM SCH (20:00)
[2017-04-15 20:28] VITALS: BP 104/56
[2017-04-15 20:37] LABS: MEAN CORPUSCULAR HEMOGLOBIN 34.1 pg (27.0-33.0); MEAN CORPUSCULAR HGB CONC 35.5 g/dl (32.0-36.5); MEAN CORPUSCULAR VOLUME 96.1 fl (80.0-96.0); RED CELL DISTRIBUTION WIDTH 12.1 % (11.5-14.5); WHITE BLOOD COUNT 9.3 K/mm3 (4.0-10.0)
[2017-04-15] MEDS: LR 1,000 ML IV SCH (22:36)
[2017-04-16] VITALS: BP 108/60
[2017-04-16 04:06] VITALS: BP 95/55
[2017-04-16] MEDS: NIFEdipine 10 MG CAP PO SCH ×2 (04:13→10:16)
[2017-04-16] MEDS: LR 1,000 ML IV SCH ×2 (04:15→11:26)
[2017-04-16 07:20] VITALS: BP 112/59
[2017-04-16 10:16] VITALS: BP 103/53
[2017-04-16 10:21] VITALS: BP 103/59
--- NOTE | 2017-04-16 11:02 | IPNPDOC ---
Text Note Date of Service The patient was seen on 04/16/17. NOTE Felicitas is a 31y/o @ 29wk gestation who was admitted for observation yesterday afternoon to rule out labor. She has been having contractions for weeks off and on, but they were more regular and painful yesterday. Feels good movement. No vaginal bleeding or loss of fluid. She had formal u/s last night for BPP (06/21) and cervical length (4cm long). She received a dose of betamethasone at 2000 last night and has been receiving scheduled nifedipine, but continues to have ctx q3-7min that she feels. She reports she has discomfort from her ctx but also overlying her pubic bone. She notes it is "difficult to walk" sometimes because of the pain over her pubic bone. History significant for two prior term deliveries and labor with prior that was "stopped". Notably, cervix was 4cm long at 20wk anatomy scan. O: Vitals wnl, afebrile Exam: General: A&Ox3, NAD Abdomen: Gravid, nontender to palpation, soft, mild ctx Tenderness with deep palpation over midline pubic symphysis consistent with pubic diastasis SCE with RN as marble finisher: cervix is closed/thick/high Mcgrew: contractions q3-7mins. Doppler: FHR 135, mod [place], +accels, -decels (reassuring for gestational age) Labs: NAOMY/Wet prep on presentation- negative for budding yeast/hyphae/clue cells/ trichomonas UA wnl (positive for nitrite but no LE or WBCs or bacteria) Urine culture pending H/H 12.1/34, WBC 9.3, plt 237 Radiology: Formal ultrasound 04/15/17: edwards IUP with FHR 125, KRUPA 18.3cm, placenta posterior with no previa. cephalic. cervix measures 4cm in length and is closed. weight 1577g. Normal movement, breathing movements and tone. BPP 06/21. A/P: Felicitas is a 31y/o @ 29wk gestation with no evidence of labor based on no change of cervix (4cm long at 20wk u/s and 4cm last night on formal ultrasound, also on SCE this morning closed/thick/high). She does have ctx, but well tolerated by fetus and not changing her cervix. Likely pubic diastasis based on her discomfort and exam. Vitals wnl, exam benign. Reassuring status. -Discussed all findings with patient at length. Discussed that her ctx are not changing cervix and this is reassuring. Discussed pubic diastasis. -Patient comfortable with plan to discharge now with planned return tonight at 2000 for second dose of betamethasone to gain steroid completion as an outpatient with scheduled follow-up in clinic -Discussed return precautions for increasing pain/frequency of ctx, loss of fluid, vaginal bleeding, decreased movement Dr. Roshni Stevens MD [place] DANIKA VS,[place], I+O VS, [place]bec[place], I+O Laboratory Tests 04/15/17 20:21 Red Blood Count 3.54 L, Mean Corpuscular Volume 96.1 H, Mean Corpuscular Hemoglobin 34.1 H, Mean Corpuscular Hemoglobin Concent 35.5, Red Cell Distribution Width 12.1 Vital Signs Date Time Temp Pulse Resp B/P (MAP) Pulse Ox O2 Delivery O2 Flow Rate FiO2 04/16/17 10:16 103/53 04/16/17 07:20 68 18 04/16/17 04:06 97.8 ROSHNI STEVENS MD Apr 16, 2017 11:02
--- NOTE | 2017-04-18 10:50 | REPUSA ---
OBSTETRICAL ULTRASOUND INDICATION: OB screening. FINDINGS: A single live intrauterine gestation was identified with a heart rate of 125 bpm. Th e amniotic fluid index was normal measuring 18.3 cm. The placenta was posterior, without evidence of placenta previa. The fetus was in a cephalic lie. The cervix measures 4.0 cm in length and is closed . Estimated weight is 1577 g.. Normal movement, breathing movements, and tone are appreciated. The umbilical artery systolic/diastolic ratio measures 2.81. Resistive index measur es 0.74. The cranium and ventricles are unremarkable. Posterior fossa is within normal limits. The spine demonstrates normal contour and appearance. The orbits, facial anatomy, nasal anatomy, and lip s are normal in appearance. All 4 extremities appear grossly unremarkable. A four-chamber heart is ap preciated. The stomach, kidneys, bladder, and diaphragm are intact. A three-vessel umbilical co rd with normal cord insertion is appreciated. BIOMETRIC MEASUREMENTS BPD 7.8 cm HC 27.3 cm AC 26.2 cm FL 5.9 cm IMPRESSION: 1. Single live fetus based on today's measurements at 30 weeks 1 days, with an estimated due date of 06/23/2017. 2. No abnormality detected on the survey. 3. Biophysical profile measures 06/21.
== END 2017-04-16 11:00 | disposition home or self-care (01) | DRG 775 ==
LOC: M LDO 15:34 → M LDI 19:27
PROVIDERS: ADMIT Student in an Organized Health Care Education/Training Program; ATTEND Student in an Organized Health Care Education/Training Program
DX: O60.14X0 Preterm labor third trimester with preterm delivery third trimester, not applicable or unspecified (principal); Z3A.29 29 weeks gestation of pregnancy

== ENCOUNTER 2017-04-16 19:12 | Outpatient (CLI) | payer OTHER ==
[~2017-04-16 19:12] MED LIST: PRENTAB55 PO
--- NOTE | 2017-04-16 20:14 | IPNPDOC ---
Text Note Date of Service The patient was seen on 04/16/17. NOTE 31 yo @ 29+1 by LMP with [id number] presents to L&D Triage for 2nd betamethasone injections. She was discharged this am from L&D after CTX x 24 hours with no cervical change and cervical length of 4 cm. She had her first betamethasone injection on [id number] @ 1999. Reports she is still janie, but they are not as strong or as frequent. When nurse attempted to get VS she would not allow it. Stated she was told she would get and injection and leave. Recommended VS prior to injection. Order for betamethasone in [facility]. Would not allow nurse to take VS. BRUCE SOTOMAYOR CNM Apr 16, 2017 20:14
[2017-04-16] MEDS ORDERED: BETAMETHASONE SOLUSPAN 6MG/ML INJ 5ML (J0702) IM SCH (21:00)
== END 2017-04-16 20:00 | disposition home or self-care (01) ==
LOC: M LDO 19:12
PROVIDERS: ATTEND Midwife
DX: O09.893 Supervision of other high risk pregnancies, third trimester (principal); Z3A.29 29 weeks gestation of pregnancy
CPT/HCPCS: 59025; 96372; J0702

== ENCOUNTER 2017-06-06 13:29 | Outpatient (CLI) | payer OTHER ==
[~2017-06-06] VITALS: Ht 172.7 cm; Wt 69.0 kg
[2017-06-06 13:47] VITALS: BP 112/70
== END 2017-06-06 14:28 | disposition home or self-care (01) ==
LOC: M LDO 13:29
PROVIDERS: ATTEND Obstetrics & Gynecology
DX: O47.03 False labor before 37 completed weeks of gestation, third trimester (principal); Z3A.36 36 weeks gestation of pregnancy

== ENCOUNTER 2017-06-19 02:41 | Inpatient (IN) | payer OTHER ==
[~2017-06-19] VITALS: Ht 172.7 cm; Wt 68.0 kg
[2017-06-19] VITALS (32 sets, daily range): BP systolic 104–148; BP diastolic 55–97
[2017-06-19] MEDS ORDERED: LR 1,000 ML IV SCH (03:09)
[2017-06-19 03:43] LABS: MEAN CORPUSCULAR HGB CONC 34.4 g/dl (32.0-36.5); WHITE BLOOD COUNT 11.7 K/mm3 (4.0-10.0)
[2017-06-19] MEDS ORDERED: FENTANYL 2MCG/ML ROPIVACAINE 0.2% IN 0.9% NACL 200ML IVBAG As Ordered ONE (04:16)
[2017-06-19] MEDS ORDERED: OXYTOCIN 30 UNITS IN 0.9% NaCl 500ML IV BAG (J2590) As Ordered ONE (04:17)
[2017-06-19] MEDS ORDERED: EPIDURAL COMMENT XX SCH (07:00)
[2017-06-19] MEDS ORDERED: diphenhydrAMINE INJ 50MG/ML VIAL (J1200) IV PRN (07:00)
[2017-06-19] MEDS ORDERED: FENTANYL/ROPIVACAINE/NACL BAG 200 ML EPIDURAL SCH (07:00)
[2017-06-19] MEDS ORDERED: ePHEDrine SULFATE 25 MG/5 ML(5MG/ML) SYRINGE IV PRN (07:00)
[2017-06-19] MEDS ORDERED: EPIDURAL/PCA KEYS XX PRN (07:00)
[2017-06-19] MEDS ORDERED: NALOXONE INJ 0.4 MG/1 ML VIAL (J2310) IV PRN (07:00)
[2017-06-19] MEDS ORDERED: REFRIGERATOR IV KEYS XX PRN (07:00)
[2017-06-19] MEDS ORDERED: ONDANSETRON 4MG/2ML VIAL (J2405) IV PRN ×2 (07:00→09:45)
[2017-06-19] MEDS ORDERED: LACTATED RINGER'S 1000 ML IV PRN (07:00)
[2017-06-19] MEDS: PRENATAL VITAMINS CHEWABLE TABLET PO SCH (09:00)
[2017-06-19] MEDS ORDERED: OXYTOCIN DRIP 30 UNITS in APPROPRIATE DILUENT 1 EA IV SCH (09:43)
[2017-06-19] MEDS ORDERED: METHYLERGONOVINE MALEATE 0.2 MG/ML VIAL (J2210) IM PRN (09:45)
[2017-06-19] MEDS ORDERED: DIBUCAINE 1% OINTMENT 30GM TOP PRN (09:45)
[2017-06-19] MEDS ORDERED: PROMETHAZINE 25 MG TAB PO PRN (09:45)
[2017-06-19] MEDS ORDERED: RHOGAM 300 MCG (1500 IU) INJ (J2790) IM SCH (09:45)
[2017-06-19] MEDS ORDERED: MEASLES,MUMPS,RUBELLA VACCINE INJ (MMR-II) (90707) SC SCH (09:45)
[2017-06-19] MEDS: ACETAMINOPHEN 500 MG TAB PO PRN ×2 (11:12→20:25)
[2017-06-19] MEDS: IBUPROFEN 800 MG TAB PO PRN (13:14)
[2017-06-19] MEDS: DOCUSATE SODIUM 100 MG CAP PO SCH (20:24)
[2017-06-20] MEDS: IBUPROFEN 800 MG TAB PO PRN ×2 (00:41→22:20)
[2017-06-20] MEDS: ACETAMINOPHEN 500 MG TAB PO PRN ×2 (05:08→07:36)
[2017-06-20 06:00] VITALS: BP 132/75
[2017-06-20] MEDS: PRENATAL VITAMINS CHEWABLE TABLET PO SCH (07:34)
[2017-06-20] MEDS: DOCUSATE SODIUM 100 MG CAP PO SCH ×2 (07:34→21:38)
[2017-06-20 17:57] VITALS: BP 141/83
[2017-06-21 06:15] VITALS: BP 131/81
[2017-06-21] MEDS: DOCUSATE SODIUM 100 MG CAP PO SCH (08:21)
[2017-06-21] MEDS: IBUPROFEN 800 MG TAB PO PRN (08:23)
[2017-06-21] MEDS ORDERED: ACET50TA PO (10:52)
[2017-06-21] MEDS ORDERED: IBUP-1114 PO (10:52)
[2017-06-21] MEDS ORDERED: COLA100C5 PO (10:52)
[2017-06-21] MEDS ORDERED: DIBU10OI TOP (10:52)
== END 2017-06-21 12:05 | disposition home or self-care (01) | DRG 775 ==
LOC: M LDO 02:41 → M LDI 03:08 → M OBS 16:34
PROVIDERS: ADMIT Obstetrics & Gynecology; ATTEND Obstetrics & Gynecology
PROC: 10E0XZZ Delivery of Products of Conception, External Approach (ICD-10-PCS; principal; 2017-06-19)
DX: O80 Encounter for full-term uncomplicated delivery (principal); Z37.0 Single live birth; Z3A.38 38 weeks gestation of pregnancy

== ENCOUNTER → 2022-12-26 | Outpatient (REF) | payer OTHER ==
[~2022-12-26] MED LIST changes: +COLA100C5 PO; +DIBU28OI2 TOP; +IBUP-1114 PO; +MAPA500T2 PO
== END ==
LOC: M WUC 18:36
PROVIDERS: ATTEND Physician Assistant
DX: J06.9 Acute upper respiratory infection, unspecified (principal)

== ENCOUNTER → 2024-09-30 | Outpatient (REF) | payer OTHER ==
[~2024-09-30] MED LIST changes: +SYNT50TA PO
== END ==
LOC: M LAB REF 19:09
PROVIDERS: ATTEND Student in an Organized Health Care Education/Training Program
DX: R06.02 Shortness of breath (principal)

== ENCOUNTER → 2024-09-30 | Outpatient (CLI) | payer OTHER | LOC: M RAD 13:19 | PROVIDERS: ATTEND Student in an Organized Health Care Education/Training Program | DX: R06.02 Shortness of breath (principal) ==

== ENCOUNTER 2025-05-16 13:28 | Outpatient (CLI) | payer OTHER ==
[~2025-05-16] VITALS: Ht 172.7 cm; Wt 78.0 kg
[~2025-05-16 13:28] MED LIST changes: +ALBUTEROL SULFATE 2.5 MG/0.5 ML INH CONCENTRATE NEB SOLN INH PRN; +EPINEPHrine INJ 1 MG/ML 1ML AMP IM PRN; +diphenhydrAMINE 50 MG/ML VIAL IV PRN
[2025-05-16] MEDS: FERRIC CARBOXYMALTOSE 750 MG (VIAL MATE) IN 100ML NS IV ONE (14:08)
[2025-05-16 14:20] VITALS: BP 118/80; O2SAT 99
== END 2025-05-16 14:30 | disposition home or self-care (01) ==
LOC: M INFU 13:28
PROVIDERS: ATTEND Internal Medicine
DX: D50.9 Iron deficiency anemia, unspecified (principal); Z88.0 Allergy status to penicillin
CPT/HCPCS: 96365; J1439

== ENCOUNTER → 2025-07-01 | Outpatient (CLI) | payer OTHER ==
[~2025-07-01] MED LIST changes: -ALBUTEROL SULFATE 2.5 MG/0.5 ML INH CONCENTRATE NEB SOLN INH PRN; -EPINEPHrine INJ 1 MG/ML 1ML AMP IM PRN; -diphenhydrAMINE 50 MG/ML VIAL IV PRN
== END ==
LOC: M CARPUL 12:52
PROVIDERS: ATTEND Student in an Organized Health Care Education/Training Program
DX: R06.02 Shortness of breath (principal)

== ENCOUNTER → 2025-08-05 | Outpatient (CLI) | payer OTHER ==
[~2025-08-05] MED LIST changes: +METHACHOLINE KIT (6 VIAL.NEB PREMIX) INH ONE
== END ==
LOC: M CARPUL 08:43
PROVIDERS: ATTEND Student in an Organized Health Care Education/Training Program
DX: R06.02 Shortness of breath (principal)
CPT/HCPCS: 94070; 95070; J7674

== ENCOUNTER → 2025-08-26 | Outpatient (REF) | payer OTHER ==
[~2025-08-26] MED LIST changes: -METHACHOLINE KIT (6 VIAL.NEB PREMIX) INH ONE
== END ==
LOC: M LAB REF 11:32
PROVIDERS: ATTEND Physician Assistant Medical
DX: B34.9 Viral infection, unspecified (principal)

== ENCOUNTER → 2025-10-16 | Outpatient (REF) | LOC: M EMP 08:43 | PROVIDERS: ATTEND Family Medicine | DX: Z11.52 Encounter for screening for COVID-19 (principal) ==